=== PATIENT | female | born 1990 | race Caucasian/White ===

== ENCOUNTER → 2024-12-09 14:31 | Outpatient (REF) | payer OTHER, SELFPAY | LOC: RAD 14:31 | PROVIDERS: ATTENDING PHYSICIAN Nurse Practitioner Adult Health | DX: M79.605 Pain in left leg (principal) | CPT/HCPCS: 73590 ==

== ENCOUNTER → 2025-02-23 12:00 | Outpatient (REF) | payer OTHER, SELFPAY | LOC: DHSLP 12:00 | PROVIDERS: ATTENDING PHYSICIAN Nurse Practitioner Adult Health | DX: G47.33 Obstructive sleep apnea (adult) (pediatric) (principal); R06.83 Snoring | CPT/HCPCS: 95800 ==